=== PATIENT | male | born 1975 | race Native Hawaiian/Other Pacific Islander ===

== ENCOUNTER 2016-09-30 18:56 | Emergency (ER) | payer OTHER ==
[~2016-09-30] VITALS: Ht 175.3 cm; Wt 85.7 kg
[~2016-09-30 18:56] MED LIST: GABA300C2 PO
[2016-09-30 22:14] VITALS: BP 114/69; TEMP 98.4
== END 2016-09-30 22:16 | disposition home or self-care (01) ==
LOC: ED 18:56
DX: S30.1XXA Contusion of abdominal wall, initial encounter (principal); M47.896 Other spondylosis, lumbar region; V86.99XA Unspecified occupant of other special all-terrain or other off-road motor vehicle injured in nontraffic accident, initial encounter; Y92.89 Other specified places as the place of occurrence of the external cause
CPT/HCPCS: 99283; Q9963

== ENCOUNTER 2016-12-15 12:17 | Outpatient (CLI) | payer OTHER | END 2016-12-15 12:24 | disposition short-term general hospital (02) | LOC: AMB 12:17 | DX: R29.898 Other symptoms and signs involving the musculoskeletal system (principal) | CPT/HCPCS: A0425; A0427 ==

== ENCOUNTER 2016-12-22 08:04 | Outpatient (CLI) | payer OTHER ==
[2016-12-22] MEDS ORDERED: NEURONTIN800 MG PO (14:00)
[2016-12-22] MEDS ORDERED: POTA20TA4 PO (14:06)
== END 2016-12-22 08:10 | disposition short-term general hospital (02) ==
LOC: AMB 08:04
DX: M79.602 Pain in left arm (principal); M79.601 Pain in right arm; M79.605 Pain in left leg; M79.604 Pain in right leg; R53.1 Weakness
CPT/HCPCS: A0425; A0427

== ENCOUNTER 2016-12-22 08:30 | Observation (INO) | payer OTHER ==
[2016-12-22] VITALS (8 sets, daily range): BP systolic 117–147; BP diastolic 54–77; TEMP 97.8–98; Ht 175.3 cm; Wt 91.4 kg
[~2016-12-22] VITALS: Ht 175.3 cm; Wt 91.4 kg
[2016-12-22 08:59] LABS: PLATELET COUNT 305 K/uL (142-355)
[2016-12-22 09:18] LABS: SODIUM 141 mmol/L (136-145)
[2016-12-22 09:22] LABS: POTASSIUM 1.6 mmol/L (3.6-5.2)
[2016-12-22] MEDS ORDERED: NEURONTIN800 MG PO (14:00)
[2016-12-22] MEDS ORDERED: POTA20TA4 PO (14:06)
--- NOTE | 2016-12-22 14:07 | NUR ---
PT TO ROOM 1102 VIA WC WITH FAMILY. PT ALERT AND ORIENTED. NAD NOTED. ASSESSMENT COMPLETE. NS WITH 40 KCL INFUSING AT THIS TIME, NO S/S INFILTRATION. ORIENTED PT TO ROOM AND CONTROLS. BED LOW AND CALL LIGHT WITHIN REACH. WILL MONITOR
[2016-12-23] VITALS: BP 101/44; TEMP 98.3
[2016-12-23 02:38] LABS: PLATELET COUNT 264 K/uL (142-355)
[2016-12-23 03:01] LABS: POTASSIUM 4.2 mmol/L (3.6-5.2); SODIUM 140 mmol/L (136-145)
[2016-12-23 04:00] VITALS: BP 115/58; TEMP 97.8
[2016-12-23 07:55] VITALS: BP 130/63; TEMP 97.6
--- NOTE | 2016-12-23 10:26 | NUR ---
24 HOUR URINE COMPLETE AT THIS TIME. DR MOSER NOTIFIED.
--- NOTE | 2016-12-23 10:59 | NUR ---
IV DC'D WITH CANNULA INTACT AND SITE CARE PROVIDED. TELE DC'D. ORDER GIVEN TO PT FOR LAB DRAW TO RECHECK POTASSIUM ON 12/25/16. EDUCATED PT ON DIET. PT VERBALIZED UNDERSTANDING. PT REQUESTED TO FOLLOW UP WITH DR CHAN. APPT MADE ON 12/30/16 AT 1000.
--- NOTE | 2016-12-23 11:07 | NUR ---
PT LEFT AMBULATORY REQUESTED. NAD NOTED
== END 2016-12-23 11:10 | disposition home or self-care (01) ==
LOC: ED 08:30 → MED/SURG 11:58
PROVIDERS: ADMIT Family Medicine
DX: E87.6 Hypokalemia (principal)
CPT/HCPCS: 80048; 80053; 82550; 83735; 84100; 85027; 93005; 96365; 99220; 99284; G0378; J1650; J3475; J3480

== ENCOUNTER 2016-12-25 12:10 | Outpatient (CLI) | payer OTHER ==
[~2016-12-25 12:10] MED LIST changes: +NEURONTIN800 MG PO; +POTA20TA4 PO
== END 2016-12-25 13:10 | disposition home or self-care (01) ==
LOC: LABW 12:10
DX: E87.6 Hypokalemia (principal)
CPT/HCPCS: 36415; 84132

== ENCOUNTER 2017-10-01 17:23 | Outpatient (CLI) | payer OTHER | END 2017-10-01 17:26 | disposition short-term general hospital (02) | LOC: AMB 17:23 | DX: M54.6 Pain in thoracic spine (principal); M54.2 Cervicalgia; V49.88XA Car occupant (driver) (passenger) injured in other specified transport accidents, initial encounter; Y92.481 Parking lot as the place of occurrence of the external cause | CPT/HCPCS: A0425; A0427 ==

== ENCOUNTER 2017-10-01 17:29 | Emergency (ER) | payer OTHER ==
[~2017-10-01] VITALS: Ht 175.3 cm; Wt 90.7 kg
[2017-10-01 19:20] VITALS: BP 155/81; TEMP 98
== END 2017-10-01 19:20 | disposition home or self-care (01) ==
LOC: ED 17:29
DX: S16.1XXA Strain of muscle, fascia and tendon at neck level, initial encounter (principal); S29.012A Strain of muscle and tendon of back wall of thorax, initial encounter; S22.028A Other fracture of second thoracic vertebra, initial encounter for closed fracture; V59.50XA Passenger in pick-up truck or van injured in collision with unspecified motor vehicles in traffic accident, initial encounter; Y92.89 Other specified places as the place of occurrence of the external cause
CPT/HCPCS: 96372; 99283; J1885